=== PATIENT | female | born 1945 | race Caucasian/White ===

== ENCOUNTER 2016-10-02 17:32 | Emergency (ER) | payer MEDICARE ==
[~2016-10-02 17:32] MED LIST: ANASTROZOLE1 MG PO; ASPIRIN EC81 MG PO; CO Q-1050 MG PO; FERREX 150150 MG PO; FISH OIL 1,2001 EAC1 PO; FLONASE 0.05% N16 GM; GLUCOPHAGE1000 MG PO; IMDUR ER TAB 3030 MG PO; JANUVIA100 MG PO; LEVAQUIN500 MG PO; LEVEMIR100 UNIT/1 SC; LIORESAL TAB 1010 MG PO; LISINOPRIL40 MG PO; LIVALO2 MG PO; MEDROL DOSEPAK 24 MG PO; METHYLPHENIDATE20 MG PO; MIRAPEX0.5 MG PO; NORVASC 5 MG TAB5 MG PO; NOVOLOG100 UNIT/1 SC; PRILOSEC20 MG PO; PROVENTIL HFA 61 INH INH; SPIRIVA18 MCG INH; SYMBICORT 160-1 INHA INH; TENORMIN 50 MG50 MG PO; TESSALON PERLE100 MG PO; VITAMIN C 500500 MG PO; VITAMIN D22000 UNIT PO; XOPENEX 1.25 MG/3 ML NEB
== END 2016-10-02 20:10 | disposition left against medical advice (07) ==
LOC: ER1 17:32
DX: Z53.21 Procedure and treatment not carried out due to patient leaving prior to being seen by health care provider (principal)

== ENCOUNTER → 2016-11-01 | Outpatient (CLI) | payer MEDICARE ==
[2016-11-01 21:22] LABS: BUN/CREATININE RATIO 23 (0-10)
== END ==
LOC: LAB 20:16
PROVIDERS: Emergency Medicine
DX: E11.65 Type 2 diabetes mellitus with hyperglycemia (principal); I10 Essential (primary) hypertension; J43.8 Other emphysema
CPT/HCPCS: 80048

== ENCOUNTER → 2016-12-27 | Outpatient (CLI) | payer MEDICARE | LOC: LAB 14:50 | DX: E11.69 Type 2 diabetes mellitus with other specified complication (principal); E78.2 Mixed hyperlipidemia; I10 Essential (primary) hypertension | CPT/HCPCS: 36415; 83036 ==

== ENCOUNTER 2020-09-14 18:23 | Inpatient (IN) | payer MEDICARE, OTHER ==
[~2020-09-14] VITALS: Ht 165.1 cm; Wt 101.2 kg
[~2020-09-14 18:23] MED LIST changes: +ALBUTEROL0.63 MG/3 INH; +ALBUTEROL2.5 MG/3 M INH; +BACTROBAN CREAM15 GM TOP; +BACTROBAN15 GM TP; +BENADRYL25 MG PO; +FLAGYL500 MG PO; +GLUCOPHAGE500 MG PO; +HYDROCHLOROTHIA25 MG PO; +INCRUSE ELLI62.5 MCG INH; +JARDIANCE10 MG PO; +LANTUS100 UNIT/1 SC; +LASIX20 MG PO; +LEVAQUIN750 MG PO; -LEVEMIR100 UNIT/1 SC; +LIPITOR TAB 1010 MG PO; +LOPRESSOR100 MG PO; +LOPRESSOR50 MG PO; +MIRAPEX1 MG PO; +MONISTAT VG; +NOVOLOG 10100 UNITS1 SC; +NOVOLOG FL100 UNIT/1 SQ; +NOVOLOG100 UNIT/1 SQ; +OMEPRAZOLE20 MG PO; +OMNICEF 300 MG300 MG PO; +PLAVIX 75 MG TA75 MG PO; +PRAVACHOL40 MG PO; +PREDNISONE 50 M50 MG PO; +PRILOSEC OTC20 MG PO; -PRILOSEC20 MG PO; +RITALIN LA20 MG PO; +SYMBICORT 80-41 INHA INH; +TRESIBA FL100 UNIT/1 SQ; +TRESIBA100 UNIT/1 SQ; +TYLENOL 650 MG650 MG PR; +ULTRACET TABLE1 EACH PO; +VAG VG; +VFEND200 MG PO; +VITAMIN B-121000 MCG IM; +ZESTRIL40 MG PO
[2020-09-14 19:15] LABS: HEMOGLOBIN 11.2 gm/dl (12.3-15.3); RED BLOOD COUNT 4.83 M/UL (4.00-5.10); WHITE BLOOD COUNT 13.9 K/UL (4.5-11.0)
[2020-09-14 19:33] LABS: BUN/CREATININE RATIO 33 (0-10)
[2020-09-14 22:53] LABS: HEMOGLOBIN 9.9 gm/dl (12.3-15.3); RED BLOOD COUNT 4.26 M/UL (4.00-5.10); WHITE BLOOD COUNT 12.2 K/UL (4.5-11.0)
[2020-09-14] MEDS ORDERED: SYMBICORT 80-41 INHA INH (23:52)
[2020-09-14] MEDS ORDERED: VITAMIN D350 MC3 PO (23:56)
[2020-09-14] MEDS ORDERED: COQ-10100 MG PO (23:57)
[2020-09-15] MEDS ORDERED: VITAMIN B-121000 MC2 SL (00:03)
[2020-09-15] MEDS ORDERED: NORVASC5 MG PO (00:03)
[2020-09-15] MEDS ORDERED: ZESTRIL40 MG PO (00:04)
[2020-09-16 05:50] LABS: RED BLOOD COUNT 3.86 M/UL (4.00-5.10); WHITE BLOOD COUNT 12.7 K/UL (4.5-11.0)
[2020-09-17 05:35] LABS: HEMOGLOBIN 7.4 gm/dl (12.3-15.3); WHITE BLOOD COUNT 13.9 K/UL (4.5-11.0)
[2020-09-17 05:54] LABS: RED BLOOD COUNT 3.23 M/UL (4.00-5.10)
[2020-09-17 12:22] LABS: RED BLOOD COUNT 3.47 M/UL (4.00-5.10); WHITE BLOOD COUNT 16.6 K/UL (4.5-11.0)
[2020-09-18 05:42] LABS: WHITE BLOOD COUNT 12.9 K/UL (4.5-11.0)
[2020-09-18 05:56] LABS: HEMOGLOBIN 6.8 gm/dl (12.3-15.3); RED BLOOD COUNT 2.93 M/UL (4.00-5.10)
[2020-09-18 07:57] LABS: HEMOGLOBIN 6.8 gm/dl (12.3-15.3)
[2020-09-19 04:51] LABS: HEMOGLOBIN 7.9 gm/dl (12.3-15.3); RED BLOOD COUNT 3.19 M/UL (4.00-5.10); WHITE BLOOD COUNT 16.4 K/UL (4.5-11.0)
[2020-09-20 03:43] LABS: HEMOGLOBIN 7.7 gm/dl (12.3-15.3); RED BLOOD COUNT 3.09 M/UL (4.00-5.10); WHITE BLOOD COUNT 17.4 K/UL (4.5-11.0)
[2020-09-21 03:14] LABS: HEMOGLOBIN 8.3 gm/dl (12.3-15.3); RED BLOOD COUNT 3.36 M/UL (4.00-5.10); WHITE BLOOD COUNT 16.7 K/UL (4.5-11.0)
[2020-09-21 03:31] LABS: BUN/CREATININE RATIO 26 (0-10)
[2020-09-21] MEDS ORDERED: BROVANA15 MCG/2 M NEB (12:14)
[2020-09-21] MEDS ORDERED: LOPRESSOR 50 MG50 MG PO (12:14)
[2020-09-21] MEDS ORDERED: IPRAT-ALBUT 0.5-3 ML NEB (12:14)
[2020-09-21] MEDS ORDERED: LEVOFLOXACIN500 MG PO (12:14)
[2021-01-19] MEDS ORDERED: OMEPRAZOLE20 MG PO (06:33)
[2021-01-19] MEDS ORDERED: PROAIR HFA8.5 GM INH (06:34)
[2021-01-19] MEDS ORDERED: ST. JOSEPH ASPI81 M1 PO (06:35)
[2021-01-19] MEDS ORDERED: [UNRECOGNIZED DRUG - OTHER] PO (06:35)
[2021-01-19] MEDS ORDERED: K-TAB ER20 MEQ PO (06:35)
== END 2020-09-21 15:15 | disposition home or self-care (01) | DRG 208 ==
LOC: ER1 18:23 → CDU 22:10 → CCU 22:10 → M/S 22:10 → CCU 23:51 → M/S 09-18 14:34
PROVIDERS: Family Medicine; Internal Medicine Infectious Disease; ADMIT Internal Medicine
PROC: 5A1945Z Respiratory Ventilation, 24-96 Consecutive Hours (ICD-10-PCS; principal; 2020-09-14)
PROC: 0BH17EZ Insertion of Endotracheal Airway into Trachea, Via Natural or Artificial Opening (ICD-10-PCS; 2020-09-14)
PROC: 5A09357 Assistance with Respiratory Ventilation, Less than 24 Consecutive Hours, Continuous Positive Airway Pressure (ICD-10-PCS; 2020-09-14)
PROC: B24BZZZ Ultrasonography of Heart with Aorta (ICD-10-PCS; 2020-09-18)
PROC: 30233N1 Transfusion of Nonautologous Red Blood Cells into Peripheral Vein, Percutaneous Approach (ICD-10-PCS; 2020-09-18)
DX: J96.22 Acute and chronic respiratory failure with hypercapnia (principal); R57.1 Hypovolemic shock; J44.1 Chronic obstructive pulmonary disease with (acute) exacerbation; N17.9 Acute kidney failure, unspecified; I50.32 Chronic diastolic (congestive) heart failure; E66.2 Morbid (severe) obesity with alveolar hypoventilation; I13.0 Hypertensive heart and chronic kidney disease with heart failure and stage 1 through stage 4 chronic kidney disease, or unspecified chronic kidney disease; J44.0 Chronic obstructive pulmonary disease with (acute) lower respiratory infection; Z20.822 Contact with and (suspected) exposure to COVID-19; J96.21 Acute and chronic respiratory failure with hypoxia; D50.9 Iron deficiency anemia, unspecified; I27.20 Pulmonary hypertension, unspecified; I48.0 Paroxysmal atrial fibrillation; G25.81 Restless legs syndrome; G47.10 Hypersomnia, unspecified; I25.10 Atherosclerotic heart disease of native coronary artery without angina pectoris; E11.65 Type 2 diabetes mellitus with hyperglycemia; E87.5 Hyperkalemia; Z96.659 Presence of unspecified artificial knee joint; D64.9 Anemia, unspecified; J20.8 Acute bronchitis due to other specified organisms; B96.5 Pseudomonas (aeruginosa) (mallei) (pseudomallei) as the cause of diseases classified elsewhere; M19.90 Unspecified osteoarthritis, unspecified site; K21.9 Gastro-esophageal reflux disease without esophagitis; E11.22 Type 2 diabetes mellitus with diabetic chronic kidney disease; N18.30 Chronic kidney disease, stage 3 unspecified; Z90.710 Acquired absence of both cervix and uterus; Z88.1 Allergy status to other antibiotic agents; Z99.81 Dependence on supplemental oxygen; Z68.37 Body mass index [BMI] 37.0-37.9, adult; Z88.0 Allergy status to penicillin; Z88.2 Allergy status to sulfonamides; Z82.49 Family history of ischemic heart disease and other diseases of the circulatory system; Z83.6 Family history of other diseases of the respiratory system; Z87.891 Personal history of nicotine dependence; Z95.5 Presence of coronary angioplasty implant and graft; Z79.02 Long term (current) use of antithrombotics/antiplatelets; Z79.82 Long term (current) use of aspirin; Z85.3 Personal history of malignant neoplasm of breast; Z79.4 Long term (current) use of insulin; Z79.899 Other long term (current) drug therapy
CPT/HCPCS: ECHO; 0240U; 31500; 36415; 36430; 36600; 71045; 80048; 80053; 80202; 82550; 82553; 82607; 82746; 82803; 82962; 83036; 83540; 83550; 83605; 83874; 83880; 84132; 84484; 85014; 85018; 85025; 85610; 86850; 86900; 86901; 86920; 87040; 87070; 87077; 87186; 87205; 92526; 92610; 93005; 93306; 94002; 94003; 94640; 94660; 94664; 94760; 96365; 96375; 97116; 97116-GP-CQ; 97161; 97530; 97530-GP-CQ; 99285; A6212; G0378; J0456; J0610; J1644; J1650; J1756; J1940; J1956; J2250; J2405; J2704; J2920; J2930; J3370; J7030; J7050; J7070; P9016; U0003

== ENCOUNTER 2020-09-30 16:10 | Emergency (ER) | payer MEDICARE ==
[~2020-09-30 16:10] MED LIST changes: +BROVANA15 MCG/2 M NEB; +COQ-10100 MG PO; +IPRAT-ALBUT 0.5-3 ML NEB; +LEVOFLOXACIN500 MG PO; +LOPRESSOR 50 MG50 MG PO; +NORVASC5 MG PO; +VITAMIN B-121000 MC2 SL; +VITAMIN D350 MC3 PO
[2020-09-30 18:04] LABS: HEMOGLOBIN 11.5 gm/dl (12.3-15.3); RED BLOOD COUNT 4.24 M/UL (4.00-5.10); WHITE BLOOD COUNT 11.1 K/UL (4.5-11.0)
[2020-09-30 18:28] LABS: BUN/CREATININE RATIO 28 (0-10)
[2020-09-30] MEDS ORDERED: FLAGYL500 MG PO (22:26)
[2021-01-19] MEDS ORDERED: OMEPRAZOLE20 MG PO (06:33)
[2021-01-19] MEDS ORDERED: PROAIR HFA8.5 GM INH (06:34)
[2021-01-19] MEDS ORDERED: ST. JOSEPH ASPI81 M1 PO (06:35)
[2021-01-19] MEDS ORDERED: [UNRECOGNIZED DRUG - OTHER] PO (06:35)
[2021-01-19] MEDS ORDERED: K-TAB ER20 MEQ PO (06:35)
== END 2020-09-30 22:45 | disposition home or self-care (01) ==
LOC: ER1 16:10
PROVIDERS: Emergency Medicine
DX: K52.9 Noninfective gastroenteritis and colitis, unspecified (principal); D49.89 Neoplasm of unspecified behavior of other specified sites; E78.5 Hyperlipidemia, unspecified; E11.9 Type 2 diabetes mellitus without complications; J44.9 Chronic obstructive pulmonary disease, unspecified; I10 Essential (primary) hypertension; Z90.710 Acquired absence of both cervix and uterus; Z88.0 Allergy status to penicillin; Z88.2 Allergy status to sulfonamides; Z95.5 Presence of coronary angioplasty implant and graft
CPT/HCPCS: 36600; 80053; 81001; 82550; 82553; 82803; 83690; 83874; 83880; 84484; 85025; 87040; 93005; 94664; 96365; 99284; J1956; J7050; Q9967

== ENCOUNTER 2020-11-03 10:20 | Emergency (ER) | payer MEDICARE ==
[2020-11-03 11:36] LABS: RED BLOOD COUNT 4.72 M/UL (4.00-5.10); WHITE BLOOD COUNT 17.3 K/UL (4.5-11.0)
[2020-11-03 12:02] LABS: BUN/CREATININE RATIO 32 (0-10)
[2021-01-19] MEDS ORDERED: OMEPRAZOLE20 MG PO (06:33)
[2021-01-19] MEDS ORDERED: PROAIR HFA8.5 GM INH (06:34)
[2021-01-19] MEDS ORDERED: ST. JOSEPH ASPI81 M1 PO (06:35)
[2021-01-19] MEDS ORDERED: [UNRECOGNIZED DRUG - OTHER] PO (06:35)
[2021-01-19] MEDS ORDERED: K-TAB ER20 MEQ PO (06:35)
== END 2020-11-03 17:55 | disposition home or self-care (01) ==
LOC: ER1 10:20
PROVIDERS: Nurse Practitioner
DX: R19.00 Intra-abdominal and pelvic swelling, mass and lump, unspecified site (principal); J44.9 Chronic obstructive pulmonary disease, unspecified; E11.9 Type 2 diabetes mellitus without complications; E78.5 Hyperlipidemia, unspecified; Z90.710 Acquired absence of both cervix and uterus; Z79.01 Long term (current) use of anticoagulants; Z79.02 Long term (current) use of antithrombotics/antiplatelets; Z88.0 Allergy status to penicillin; Z88.2 Allergy status to sulfonamides; Z88.1 Allergy status to other antibiotic agents; Z87.891 Personal history of nicotine dependence; I11.0 Hypertensive heart disease with heart failure
CPT/HCPCS: 71045; 80053; 81001; 82550; 82553; 83605; 83690; 83874; 84484; 85025; 86140; 93005; 96374; 96375; 96376; 99284; J2270; J2405; J7040; Q9967

== ENCOUNTER → 2020-11-13 | Outpatient (CLI) | payer MEDICARE ==
[~2020-11-13] MED LIST changes: +K-TAB ER20 MEQ PO; +PROAIR HFA8.5 GM INH; +ST. JOSEPH ASPI81 M1 PO; +[UNRECOGNIZED DRUG - OTHER] PO
== END ==
LOC: EXRD 13:50
DX: R19.00 Intra-abdominal and pelvic swelling, mass and lump, unspecified site (principal); N83.8 Other noninflammatory disorders of ovary, fallopian tube and broad ligament
CPT/HCPCS: 76856

== ENCOUNTER → 2021-01-19 | Outpatient (CLI) | payer MEDICARE ==
[2021-01-19 08:02] LABS: HEMOGLOBIN 14.2 gm/dl (12.3-15.3); RED BLOOD COUNT 4.9 M/UL (4.00-5.10); WHITE BLOOD COUNT 10.1 K/UL (4.5-11.0)
== END ==
LOC: CT 06:11
PROVIDERS: Internal Medicine Hematology & Oncology
PROC: 0BBC3ZX Excision of Right Upper Lung Lobe, Percutaneous Approach, Diagnostic (ICD-10-PCS; principal; 2021-01-19)
DX: C34.11 Malignant neoplasm of upper lobe, right bronchus or lung (principal); C50.219 Malignant neoplasm of upper-inner quadrant of unspecified female breast; J43.9 Emphysema, unspecified; D50.9 Iron deficiency anemia, unspecified; K90.9 Intestinal malabsorption, unspecified; D48.2 Neoplasm of uncertain behavior of peripheral nerves and autonomic nervous system; I10 Essential (primary) hypertension; G47.30 Sleep apnea, unspecified; E78.00 Pure hypercholesterolemia, unspecified; E11.9 Type 2 diabetes mellitus without complications; G89.29 Other chronic pain; M19.90 Unspecified osteoarthritis, unspecified site; M54.9 Dorsalgia, unspecified; Z88.0 Allergy status to penicillin; Z88.1 Allergy status to other antibiotic agents; Z88.2 Allergy status to sulfonamides; Z79.82 Long term (current) use of aspirin; Z79.02 Long term (current) use of antithrombotics/antiplatelets; Z79.51 Long term (current) use of inhaled steroids; Z79.4 Long term (current) use of insulin; Z79.899 Other long term (current) drug therapy; Z17.0 Estrogen receptor positive status [ER+]; Z87.891 Personal history of nicotine dependence; Z95.5 Presence of coronary angioplasty implant and graft
CPT/HCPCS: 36415; 82962; 85027; 85610; 85730; 88341; 88342

== ENCOUNTER → 2021-04-07 | Outpatient (CLI) | payer MEDICARE | LOC: CT 13:00 | DX: C50.219 Malignant neoplasm of upper-inner quadrant of unspecified female breast (principal); D50.9 Iron deficiency anemia, unspecified; K90.9 Intestinal malabsorption, unspecified; D49.2 Neoplasm of unspecified behavior of bone, soft tissue, and skin | CPT/HCPCS: 36415; 71260; 82565; Q9967 ==

== ENCOUNTER → 2021-06-17 | Outpatient (CLI) | payer MEDICARE ==
[2021-06-17 15:10] LABS: HEMOGLOBIN 13.5 gm/dl (12.3-15.3); RED BLOOD COUNT 4.77 M/UL (4.00-5.10)
[2021-06-17 15:30] LABS: BUN/CREATININE RATIO 22 (0-10)
[2021-06-19 13:13] LABS: CHOLESTEROL, TOTAL 139 mg/dL (100-199); HDL SIZE 8.6 nm (>=9.2); HDL-C 36 mg/dL (>39); HDL-P (TOTAL) 28.6 umol/L (>=30.5); LARGE VLDL-P 11.7 nmol/L (<=2.7); LDL SIZE 20.1 nm (>20.5); LDL SIZE 20.1 nm (>=20.8); LDL-C 61 mg/dL (0-99); LDL-P 795 nmol/L (<1000); LP-IR SCORE 81 (<=45); SMALL LDL-P 495 nmol/L (<=527); TRIGLYCERIDES 262 mg/dL (0-149); VLDL SIZE 50.8 nm (<=46.6)
== END ==
LOC: LAB 12:31
PROVIDERS: Emergency Medicine
DX: I11.0 Hypertensive heart disease with heart failure (principal); I50.33 Acute on chronic diastolic (congestive) heart failure; E11.65 Type 2 diabetes mellitus with hyperglycemia; N28.89 Other specified disorders of kidney and ureter; R53.83 Other fatigue; E78.2 Mixed hyperlipidemia
CPT/HCPCS: 36415; 80053; 80061; 83036; 83704; 84443; 84550; 85025

== ENCOUNTER 2021-07-17 21:01 | Inpatient (IN) | payer MEDICARE ==
[~2021-07-17] VITALS: Ht 162.6 cm; Wt 102.2 kg
[~2021-07-17 21:01] MED LIST changes: -MIRAPEX1 MG PO; -ULTRACET TABLE1 EACH PO; -VITAMIN B-121000 MC2 SL
[2021-07-17 21:35] LABS: HEMOGLOBIN 12.8 gm/dl (12.3-15.3); RED BLOOD COUNT 4.6 M/UL (4.00-5.10); WHITE BLOOD COUNT 13.3 K/UL (4.5-11.0)
[2021-07-17 21:53] LABS: BUN/CREATININE RATIO 23 (0-10)
[2021-07-18] MEDS ORDERED: VITAMIN B-125000 MCG SL (00:03)
[2021-07-18] MEDS ORDERED: SYMBICORT 160-1 INHA INH (06:40)
[2021-07-18] MEDS ORDERED: TRAMADOL HCL50 MG PO (06:51)
[2021-07-18] MEDS ORDERED: MIRAPEX1 MG PO (07:20)
[2021-07-18] MEDS ORDERED: LETROZOLE2.5 MG PO (13:56)
[2021-07-19 05:16] LABS: HEMOGLOBIN 10.9 gm/dl (12.3-15.3); WHITE BLOOD COUNT 11.9 K/UL (4.5-11.0)
[2021-07-19 05:20] LABS: RED BLOOD COUNT 3.98 M/UL (4.00-5.10)
[2021-07-21] MEDS ORDERED: LEVOFLOXACIN500 MG PO (10:31)
[2021-07-21] MEDS ORDERED: MEDROL DOSEPAK 24 MG PO (10:32)
== END 2021-07-21 15:50 | disposition home health service (06) | DRG 189 ==
LOC: ER1 21:01 → CDU 07-18 00:51 → PROG CARE 07-18 00:51
PROVIDERS: Student in an Organized Health Care Education/Training Program; ADMIT Internal Medicine
PROC: 5A09457 Assistance with Respiratory Ventilation, 24-96 Consecutive Hours, Continuous Positive Airway Pressure (ICD-10-PCS; principal; 2021-07-18)
DX: J96.22 Acute and chronic respiratory failure with hypercapnia (principal); J18.9 Pneumonia, unspecified organism; J44.1 Chronic obstructive pulmonary disease with (acute) exacerbation; E66.2 Morbid (severe) obesity with alveolar hypoventilation; Z20.822 Contact with and (suspected) exposure to COVID-19; C34.90 Malignant neoplasm of unspecified part of unspecified bronchus or lung; I50.32 Chronic diastolic (congestive) heart failure; J44.0 Chronic obstructive pulmonary disease with (acute) lower respiratory infection; E87.3 Alkalosis; E87.2 Acidosis; G47.33 Obstructive sleep apnea (adult) (pediatric); E87.5 Hyperkalemia; I87.8 Other specified disorders of veins; I48.0 Paroxysmal atrial fibrillation; K21.9 Gastro-esophageal reflux disease without esophagitis; Z96.659 Presence of unspecified artificial knee joint; I27.20 Pulmonary hypertension, unspecified; I25.10 Atherosclerotic heart disease of native coronary artery without angina pectoris; E11.9 Type 2 diabetes mellitus without complications; Z79.4 Long term (current) use of insulin; Z85.3 Personal history of malignant neoplasm of breast; Z79.01 Long term (current) use of anticoagulants; Z79.82 Long term (current) use of aspirin; Z99.81 Dependence on supplemental oxygen; Z95.5 Presence of coronary angioplasty implant and graft; Z90.710 Acquired absence of both cervix and uterus; Z88.1 Allergy status to other antibiotic agents; Z88.0 Allergy status to penicillin; Z88.2 Allergy status to sulfonamides; Z88.8 Allergy status to other drugs, medicaments and biological substances; Z82.49 Family history of ischemic heart disease and other diseases of the circulatory system; Z68.38 Body mass index [BMI] 38.0-38.9, adult
CPT/HCPCS: 36415; 36600; 71045; 80048; 80053; 80202; 82550; 82553; 82803; 82962; 83880; 84484; 85025; 85379; 85652; 86140; 93005; 94640; 94660; 94664; 94760; 96374; 97161; 97530; 99285; J1100; J1120; J1650; J1940; J2920; J2930; J3370; J7070; Q9967; U0002

== ENCOUNTER → 2021-07-29 | Outpatient (CLI) | payer MEDICARE ==
[~2021-07-29] MED LIST changes: +LETROZOLE2.5 MG PO; +MIRAPEX1 MG PO; +TRAMADOL HCL50 MG PO; +VITAMIN B-125000 MCG SL
== END ==
LOC: CT 07-26 10:30
DX: C50.219 Malignant neoplasm of upper-inner quadrant of unspecified female breast (principal); D50.9 Iron deficiency anemia, unspecified; K90.9 Intestinal malabsorption, unspecified; D49.2 Neoplasm of unspecified behavior of bone, soft tissue, and skin; J43.9 Emphysema, unspecified; J84.10 Pulmonary fibrosis, unspecified; N85.8 Other specified noninflammatory disorders of uterus
CPT/HCPCS: 71260; Q9967

== ENCOUNTER 2021-08-13 09:30 | Inpatient (IN) | payer MEDICARE ==
[~2021-08-13] VITALS: Ht 162.6 cm; Wt 102.3 kg
[2021-08-13 10:15] LABS: HEMOGLOBIN 11.3 gm/dl (12.3-15.3); RED BLOOD COUNT 4.43 M/UL (4.00-5.10); WHITE BLOOD COUNT 9.3 K/UL (4.5-11.0)
[2021-08-13 11:15] LABS: BUN/CREATININE RATIO 26 (0-10)
[2021-08-13] MEDS ORDERED: POTASSIUM CHLO20 ME2 PO (16:56)
[2021-08-13] MEDS ORDERED: PRAMIPEXOLE DIHY1 MG PO (16:59)
[2021-08-13] MEDS ORDERED: GLUCOPHAGE XR500 M1 PO (17:01)
[2021-08-13] MEDS ORDERED: ALBUTEROL2.5 MG/3 M INH (17:02)
[2021-08-13] MEDS ORDERED: FUROSEMIDE40 MG PO (17:06)
[2021-08-13] MEDS ORDERED: SPIRIVA RESPIMAT4 GM INH (17:15)
[2021-08-14 04:56] LABS: HEMOGLOBIN 9.8 gm/dl (12.3-15.3)
[2021-08-14 05:03] LABS: RED BLOOD COUNT 3.89 M/UL (4.00-5.10)
[2021-08-15 04:47] LABS: HEMOGLOBIN 10.3 gm/dl (12.3-15.3); RED BLOOD COUNT 3.99 M/UL (4.00-5.10); WHITE BLOOD COUNT 8.9 K/UL (4.5-11.0)
[2021-08-16 05:30] LABS: HEMOGLOBIN 10.4 gm/dl (12.3-15.3); RED BLOOD COUNT 4.05 M/UL (4.00-5.10); WHITE BLOOD COUNT 9.2 K/UL (4.5-11.0)
[2021-08-17 06:35] LABS: HEMOGLOBIN 10.2 gm/dl (12.3-15.3); RED BLOOD COUNT 4.05 M/UL (4.00-5.10); WHITE BLOOD COUNT 9.1 K/UL (4.5-11.0)
[2021-08-17] MEDS ORDERED: ACETAMINOPHEN (10:01)
[2021-08-17] MEDS ORDERED: LORAZEPAM (10:01)
[2021-08-17] MEDS ORDERED: OXYCODONE (10:01)
[2021-08-17] MEDS ORDERED: PERCOCET 5-3251 EACH PO (10:43)
[2021-08-17] MEDS ORDERED: ATIVAN0.5 MG PO (10:44)
== END 2021-08-17 14:04 | disposition home or self-care (01) | DRG 291 ==
LOC: ER1 09:30 → MED SURG 4 17:05 → CDU 17:05 → MED SURG 4 22:00
PROVIDERS: Emergency Medicine; Physician Assistant Medical; ADMIT Internal Medicine
DX: I11.0 Hypertensive heart disease with heart failure (principal); J96.21 Acute and chronic respiratory failure with hypoxia; J96.22 Acute and chronic respiratory failure with hypercapnia; Z20.822 Contact with and (suspected) exposure to COVID-19; I50.33 Acute on chronic diastolic (congestive) heart failure; J18.9 Pneumonia, unspecified organism; J44.0 Chronic obstructive pulmonary disease with (acute) lower respiratory infection; E66.2 Morbid (severe) obesity with alveolar hypoventilation; Z51.5 Encounter for palliative care; G47.33 Obstructive sleep apnea (adult) (pediatric); K21.9 Gastro-esophageal reflux disease without esophagitis; E78.5 Hyperlipidemia, unspecified; I48.0 Paroxysmal atrial fibrillation; I87.8 Other specified disorders of veins; Z96.651 Presence of right artificial knee joint; I25.10 Atherosclerotic heart disease of native coronary artery without angina pectoris; E11.9 Type 2 diabetes mellitus without complications; Z85.43 Personal history of malignant neoplasm of ovary; Z85.3 Personal history of malignant neoplasm of breast; Z95.5 Presence of coronary angioplasty implant and graft; Z79.01 Long term (current) use of anticoagulants; Z79.82 Long term (current) use of aspirin; Z79.899 Other long term (current) drug therapy; Z79.4 Long term (current) use of insulin; Z90.710 Acquired absence of both cervix and uterus; Z88.1 Allergy status to other antibiotic agents; Z88.0 Allergy status to penicillin; Z88.2 Allergy status to sulfonamides; Z88.8 Allergy status to other drugs, medicaments and biological substances; Z87.891 Personal history of nicotine dependence; Z80.1 Family history of malignant neoplasm of trachea, bronchus and lung; Z82.49 Family history of ischemic heart disease and other diseases of the circulatory system
CPT/HCPCS: 0240U; 36415; 36600; 71045; 80048; 80053; 82550; 82553; 82803; 82962; 83036; 83605; 83735; 83874; 83880; 84484; 85025; 85027; 87040; 93005; 94640; 94660; 94664; 94760; 96374; 96375; 96376; 99285; J1100; J1120; J1650; J1940; J1956; J2920; Q9967